=== PATIENT | female | born 1950 | race Caucasian/White ===

== ENCOUNTER 2023-03-24 12:05 | Emergency (ER) | payer MEDICARE ==
[~2023-03-24] VITALS: Ht 160 cm; Wt 70.0 kg
[2023-03-24] VITALS (7 sets, daily range): BP systolic 123–139; BP diastolic 70–81
[~2023-03-24 12:05] MED LIST: AMOX/K CLAV875 M1 PO; AMOXICILLIN875 MG PO; AUGMENTIN875TAB PO; CIPRO500 MG PO; CLARITIN10 MG PO; CO Q-10100 MG OR; DEPO-MEDROL80 MG/ML IM; DOXYCYCL HYC100 MG PO; FLEXERIL5 M1 PO; FLUTICASONE50 MCG; FLUZONE SPLT1 M1 IM; LEVOTHYROXIN100 MC1 PO; NAPROSYN500 MG PO; NATURE THROI OR; ROCEPHIN 2250 MG/VIA IM; SYNTHROID100 MCG PO; THYROID MEDICATION PO; VITAMIN B CO OR; VITAMIN D50000 UN1 OR; ZYRTEC-D AL1 OR
[2023-03-24] MEDS ORDERED: MEDROL DOSEPAK4 MG PO (15:22)
[2023-03-24] MEDS ORDERED: MELOXICAM7.5 MG PO (15:22)
== END 2023-03-24 15:51 | disposition home or self-care (01) ==
LOC: ED 12:05
DX: M47.816 Spondylosis without myelopathy or radiculopathy, lumbar region (principal)